=== PATIENT | male | born 1960 | race Caucasian/White ===

== ENCOUNTER 2019-03-30 13:00 | Emergency (ER) | payer BC, OTHER ==
[2019-03-30 13:24] VITALS: BP 127/86
[2019-03-30] MEDS ORDERED: HYDROcodone/ACETAMIN 5-325 MG* 1 TAB PO ONE (13:33)
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
== END 2019-03-30 14:40 | disposition home or self-care (01) ==
LOC: UCEAST 13:00
DX: T84.84XA Pain due to internal orthopedic prosthetic devices, implants and grafts, initial encounter (principal); Y83.8 Other surgical procedures as the cause of abnormal reaction of the patient, or of later complication, without mention of misadventure at the time of the procedure; Y92.9 Unspecified place or not applicable; M96 Intraoperative and postprocedural complications and disorders of musculoskeletal system, not elsewhere classified; F17.210 Nicotine dependence, cigarettes, uncomplicated
CPT/HCPCS: 99202; G0463

== ENCOUNTER 2019-04-05 09:02 | Day surgery (SDC) | payer SELFPAY ==
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
[~2019-04-05 09:02] MED LIST: Dexamethasone IV* 4 MG/ML 1 ML (4 MG) ONE; Famotidine IV* 10 MG/ML 2 ML (20 mg) ONE; ceFAZolin 2 GM PREMIX in ORs 2 GM/50 ML BAG IVPB ONE
[2019-04-05] MEDS ORDERED: fentaNYL* 50 MCG/ML 2 ML VIAL (100 MCG VIAL) ONE ×5 (10:15→13:52)
[2019-04-05] MEDS ORDERED: Midazolam* 1 MG/ML 2 ML VIAL (2 MG) ONE (10:15)
[2019-04-05] MEDS ORDERED: fentaNYL* 50 MCG/ML 2 ML VIAL (100 MCG VIAL) IV PRN (10:24)
[2019-04-05] MEDS ORDERED: Naloxone* 0.4 MG/ML 1 ML VIAL IV PRN (10:24)
[2019-04-05] MEDS ORDERED: HYDROmorphone INJ1* 1 MG/ML SYRINGE IV PRN (10:24)
[2019-04-05] MEDS ORDERED: DiMENhydriNATE IV* 50 MG/ML VIAL IV PUSH PRN (10:24)
[2019-04-05] MEDS ORDERED: Bupivacaine 0.5% SDV PF* 30ML VIAL ONE (10:39)
[2019-04-05] MEDS ORDERED: Gelfoam 12-7 ADSORBABL SPONGE* 1 EA SPONGE ONE (11:17)
[2019-04-05] MEDS ORDERED: Esmolol* 10 MG/ML 10 ML (100 mg) ONE (13:04)
[2019-04-05] MEDS ORDERED: oxyCODONE ORAL.SOLN* 5 MG/5 ML UDC ONE (13:54)
[2019-04-05 14:18] VITALS: BP 144/93
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
== END 2019-04-05 14:47 | disposition home or self-care (01) ==
LOC: OREAST 09:02
PROVIDERS: ATTEND Orthopaedic Surgery
DX: S52.222K Displaced transverse fracture of shaft of left ulna, subsequent encounter for closed fracture with nonunion (principal); F17.210 Nicotine dependence, cigarettes, uncomplicated; V49.9XXD Car occupant (driver) (passenger) injured in unspecified traffic accident, subsequent encounter; Y92.9 Unspecified place or not applicable
CPT/HCPCS: 76000; 87070; 87073; 87205; 88300; A9270-GY; C1713; C1776; J0690; J1100; J2250; J3010; J3490